=== PATIENT | male | born 1975 | race Two or more races ===

== ENCOUNTER 2024-11-10 12:54 | Emergency (ER) | payer OTHER ==
[~2024-11-10] VITALS: Ht 188 cm; Wt 158.3 kg
[2024-11-10] MEDS ORDERED: GUAIFEN/DEXTROMETHORPHAN/PE 10 ML BLIST.PACK PO ONE (13:30)
[2024-11-10] MEDS ORDERED: MAG HYDROX/ALUMINUM HYD/SIMETH 30 ML BLIST.PACK PO ONE (13:30)
[2024-11-10] MEDS ORDERED: LEVALBUTEROL HCL 1.25 MG/3 ML SOLUTION IH SCH (13:30)
[2024-11-10] MEDS ORDERED: PROAIR RESPICL90 MCG IH (15:29)
[2024-11-10] MEDS ORDERED: TUSNEL LIQUID178 ML PO (15:29)
== END 2024-11-10 15:40 | disposition home or self-care (01) ==
LOC: ER 12:57
DX: R53.81 Other malaise (principal); J68.0 Bronchitis and pneumonitis due to chemicals, gases, fumes and vapors; Z88.0 Allergy status to penicillin; Z88.6 Allergy status to analgesic agent; Z88.9 Allergy status to unspecified drugs, medicaments and biological substances